=== PATIENT | male | born 1995 | race Caucasian/White ===

== ENCOUNTER 2025-01-08 07:16 | Emergency (ER) | payer OTHER, SELFPAY ==
[2025-01-08 07:27] VITALS: BP 127/61
--- NOTE | 2025-01-08 07:51 | ED.GENMED ---
History of Present Illness
General
Chief Complaint: Chest Pain
Source: patient
Exam Limitations: none
Time Seen by Provider: 01/08/25 07:41
History of Present Illness
History of Present Illness:
29-year-old male otherwise healthy presents complaining of intermittent chest pain since 3 days ago. The pain is a tight squeezing sensation that can last 45 minutes and go away for couple hours. It is random not associated with exertion. Can
happen at rest. No recent travel or surgery. No leg swelling or calf pain. The pain radiates to the right shoulder occasionally. 3 weeks ago he was diagnosed with pneumonia at an urgent care and finished a course of antibiotics. He denies cough
or hemoptysis. No current fever.
Phy Exam
Physical Exam
Physical Exam:
General: Well-appearing male no acute respiratory distress
HEENT: Normocephalic atraumatic
Heart: Regular rate and rhythm lungs: Clear no wheeze
Abdomen is soft nontender nondistended
Extremities: No cyanosis edema or calf tenderness
Skin: Warm no rash
Scores
Heart Score for Chest Pain Patients
STEMI patient?: No
History: Slightly or Non-Suspicious
ECG: Normal
Age: </= 45 years
Risk Factors: No Risk Factors
Troponin: </= Normal Limit
Heart Score for Chest Pain Patients: 0
Heart Score Risk: 2.5% MACE over next 6 weeks
Course
Orders/Labs/Results
Orders:
Orders
01/08/25 07:19
EKG [Electrocardiogram (*1)] Urgent
Reason for Study: Chest Pain
EKG- Treatment ONCE
01/08/25 07:51
CR Chest - 2 Views Urgent
Comment:
Reason For Exam: chest pain
01/08/25 08:22
Complete Blood Count/With Diff Urgent
Comprehensive Metabolic Panel Urgent
D-Dimer Urgent
Troponin I Urgent
Abnormal Lab Results
01/08/25
08:22
MCV 79.3 L fL
(80.0-94.0)
Glucose 104 H mg/dl
(70-99)
ALT 63 H U/L
(0-50)
01/08/25 08:22
01/08/25 08:22
Vital Signs
Initial and Last Documented VS:
Initial Vital Signs
Temp Pulse Resp BP Pulse Ox
98.4 F 78 16 127/61 97
01/08/25 07:27 01/08/25 07:27 01/08/25 07:27 01/08/25 07:27 01/08/25 07:27
Last Documented Vital Signs
Temp Pulse Resp BP Pulse Ox
98.4 F 76 11 108/70 98
01/08/25 07:27 01/08/25 08:19 01/08/25 08:19 01/08/25 08:19 01/08/25 08:19
MDM/Problems Addressed
Differential Diagnosis Includes:
Chest pain. Differential could include ACS versus PE versus pneumothorax versus reflux
Chest x-ray pending. EKG through triage shows sinus rhythm without ischemic changes and the rate of 75
Troponin and D-dimer pending as well. Low risk for PE
*Critical Care Note
Total Time (30-74mins, 75-104mins- exclusive of procedures): Not Applicable
Update Note
Update Note:
Workup here essentially unremarkable. Negative troponin. D-dimer negative chest x-ray clear. Given symptoms have been going on for 3 to 4 days negative troponin x 1 is reassuring. Patient's discomfort is atypical. Recommend follow-up with
family doctor.
ED Attending Note
-
Portions of this chart may have been created with voice recognition software.� Occasional wrong word or��sound alike� substitutions may have occurred due to the inherent limitations of voice recognition software.
Discharge Plan
Departure
Patient Disposition: Home (Routine Discharge)
Date of Disposition: 01/08/25
Time of Disposition: 10:08
Patient with high blood pressure during this ER visit?: No
Discharge Problem:
Chest pain
Instructions: Chest Pain PCP Follow Up
Referrals:
UNKNOWN - PT DOES,NOT KNOW [Family Provider] -
Activity Restrictions/Additional Instructions:
Please return here for worsening symptoms otherwise follow-up with your doctor
Interventions
Interventions:
*Risk Screen - Suicide Last Done: 01/08/25 07:27
*General Assessment Last Done: 01/08/25 08:31
*Neglect/Abuse Screening Last Done: 01/08/25 07:27
ED- Cardiac Assessment Last Done: 01/08/25 08:31
Discharge Date and Time
Print Language: ROMANIAN
[2025-01-08 08:19] VITALS: BP 108/70
[2025-01-08 08:59] LABS: ALT (SGPT) 63 U/L (0-50); AST (SGOT) 34 U/L (17-59); Albumin 4.5 g/dl (3.5-5.0); Alkaline Phosphatase 76 U/L (38-126); Blood Urea Nitrogen 13 mg/dl (9-20); Calcium 9.6 mg/dl (8.4-10.2); Carbon Dioxide 26 mmol/L (22-30); Chloride 106 mmol/L (98-107); Glucose 104 mg/dl (70-99); Potassium 4.1 mmol/L (3.5-5.1); Sodium 142 mmol/L (135-145); Total Bilirubin 0.8 mg/dl (0.2-1.3); Total Protein 7.2 g/dl (6.3-8.2); Troponin I < 0.012 ng/ml; eGFR > 60.00
[2025-01-08 09:00] LABS: Hematocrit 40.7 % (39.0-52.0); Hemoglobin 14.3 g/dL (13.0-18.0); Mean Corp Hgb Conc. 35.1 g/dL (33.0-37.0); Mean Corpuscular Hgb 27.9 pg (27.0-31.0); Mean Corpuscular Volume 79.3 fL (80.0-94.0); Mean Platelet Volume 10.2 fL (7.4-10.4); Platelet Count 247 10^3/uL (130-400); Red Blood Cell Count 5.13 10^6/uL (4.70-6.10); White Blood Cell Count 5.5 10^3/uL (4.8-10.8)
[2025-01-08 09:17] LABS: D-Dimer 0.28 ug/mlFEU (0.00-0.50)
[2025-01-08 10:12] VITALS: BP 130/84
[2025-01-08 10:15] VITALS: BP 130/84
[2025-01-08 11:29] LABS: % Basophils 0.7 % (0-2); % Eosinophils 3.5 % (0-6); % Immature Granulocytes 0.4 % (0-0.5); % Lymphocytes 26.2 % (20.5-51.1); % Monocytes 8.2 % (1.7-9.3); Absolute Eosinophils 0.2 10^3/uL (0-0.7); Absolute Lymphocytes 1.4 10^3/uL (1.2-3.4); Absolute Monocytes 0.5 10^3/uL (0.1-0.6); Absolute Neutrophils 3.3 10^3/uL (1.4-6.5); Nucleated Red Blood Cells % 0 % (-)
== END 2025-01-08 10:49 | disposition home or self-care (01) ==
LOC: EMR 07:16
PROVIDERS: Physician Assistant; EMERGENCY PHYSICIAN Emergency Medicine
DX: R07.89 Other chest pain (principal)
CPT/HCPCS: 99285; 71046; 80053; 84484; 85025; 85379; 93005